=== PATIENT | male | born 1955 | race Caucasian/White ===

== ENCOUNTER → 2018-01-24 | Outpatient (CLI) | payer OTHER ==
[~2018-01-24] MED LIST: ALLO300T PO; ASPI-496 PO; ATOR80TA PO; B/P MED; NEBI5TAB2 PO
== END | disposition home or self-care (01) ==
LOC: CFH 13:02
PROVIDERS: ATTEND Internal Medicine Cardiovascular Disease
DX: I08.3 Combined rheumatic disorders of mitral, aortic and tricuspid valves (principal); I10 Essential (primary) hypertension; E78.5 Hyperlipidemia, unspecified; I77.810 Thoracic aortic ectasia
CPT/HCPCS: 93306

== ENCOUNTER 2020-09-07 10:58 | Observation (INO) | payer MEDICARE ==
[~2020-09-07] VITALS: Ht 167.6 cm; Wt 77.0 kg
[~2020-09-07 10:58] MED LIST changes: -NEBI5TAB2 PO; +NEBI5TAB3 PO
[2020-09-07] MEDS ORDERED: ROSU40TA PO (11:46)
[2020-09-07] MEDS ORDERED: METO50TA82 PO (11:46)
[2020-09-07] MEDS ORDERED: NITR0.4T28 SL (11:46)
[2020-09-07] MEDS ORDERED: VALS40TA2 PO (11:46)
[2020-09-07] MEDS ORDERED: HYDR-3237 PO (11:46)
[2020-09-07] MEDS ORDERED: NITR0.6T4 SL (11:46)
[2020-09-07 12:01] LABS: BASOPHILS % (AUTO) 0 % (0-1); EOSINOPHILS % (AUTO) 6 % (1-7); LYMPHOCYTES % (AUTO) 34 % (22-44); MEAN CORPUSCULAR HEMOGLOBIN 32.6 pg (27.5-34.5); MEAN CORPUSCULAR HGB CONC 33.5 g/dL (33.2-36.2); MEAN PLATELET VOLUME 8.1 fL (7.4-10.4); MONOCYTES % (AUTO) 8 % (2-9); NEUTROPHILS % (AUTO) 52 % (42-75); PLATELET COUNT 244 x10^3/uL (130-400); RED BLOOD COUNT 4.78 x10^6/uL (4.38-5.82)
[2020-09-07 12:09] LABS: MD NO
[2020-09-07 12:10] LABS: ANION GAP 6 mmol/L (5-15); CALCIUM 9.2 mg/dL (8.5-10.1); CHLORIDE 108 mmol/L (98-107); CREATININE 0.92 mg/dL (0.7-1.3)
[2020-09-07] MEDS ORDERED: BIVALIRUDIN 250 MG ONE ×2 (14:58→15:45)
[2020-09-07] MEDS ORDERED: FENTANYL PF 100 MCG/2ML ONE (14:58)
[2020-09-07] MEDS ORDERED: TICAGRELOR 90 MG TABLET ONE (14:58)
[2020-09-07] MEDS ORDERED: VERAPAMIL 2.5 MG/ML, 2ML ONE (14:58)
[2020-09-07] MEDS ORDERED: MIDAZOLAM 1 MG/ML, 5ML ONE (14:58)
[2020-09-07] MEDS ORDERED: LIDOCAINE-MPF 1%, 5ML ONE (14:59)
[2020-09-07] MEDS ORDERED: HEPARIN 1,000 UNITS/ML, 10ML ONE (14:59)
[2020-09-07] MEDS ORDERED: ASPIRIN 325 MG TABLET EC ONE (16:01)
[2020-09-07] MEDS ORDERED: HYDROcodone/APAP 5/325 TABLET PO PRN (16:30)
[2020-09-07] MEDS ORDERED: NITROGLYCERIN SINGLE TAB 0.4 MG SL PRN (16:30)
[2020-09-07] MEDS ORDERED: BIVALIRUDIN 250 MG in SODIUM CHLORIDE 0.9% 50 ML IV SCH (16:30)
[2020-09-07 19:19] VITALS: BP 123/79
[2020-09-07] MEDS: TICAGRELOR 90 MG TABLET PO SCH (20:31)
[2020-09-07] MEDS: METOPROLOL TARTRATE 50 MG TAB PO SCH (20:33)
[2020-09-07] MEDS ORDERED: LOSARTAN 25MG TABLET PO SCH (21:00)
[2020-09-07] MEDS ORDERED: TEMPLATE NON-FORMULARY MED. (Valsartan** (Diovan**) 40 MG) PO SCH (21:00)
[2020-09-08] MEDS ORDERED: ZOLPIDEM 5MG TABLET PO PRN
[2020-09-08 01:31] VITALS: BP 147/85
[2020-09-08 05:32] LABS: CHLORIDE 110 mmol/L (98-107)
[2020-09-08 05:39] LABS: ANION GAP 5 mmol/L (5-15); CREATININE 0.87 mg/dL (0.7-1.3)
[2020-09-08 08:29] VITALS: BP 147/76
[2020-09-08] MEDS ORDERED: ASPIRIN 81 MG TABLET EC PO SCH (09:00)
[2020-09-08] MEDS ORDERED: ALLOPURINOL 300 MG TABLET PO SCH (09:00)
[2020-09-08] MEDS: TICAGRELOR 90 MG TABLET PO SCH (10:02)
[2020-09-08] MEDS: METOPROLOL TARTRATE 50 MG TAB PO SCH (10:03)
[2020-09-08] MEDS ORDERED: TICA90TA PO (11:08)
[2020-09-08] MEDS ORDERED: METO100T5 PO (11:25)
== END 2020-09-08 12:45 | disposition home or self-care (01) ==
LOC: CACL 10:58 → ORIP 16:14 → 5SO 16:46 → DCLOUNGE 09-08 12:31
PROVIDERS: ADMIT Internal Medicine Cardiovascular Disease; ATTEND Internal Medicine Cardiovascular Disease
DX: I25.10 Atherosclerotic heart disease of native coronary artery without angina pectoris (principal); I25.5 Ischemic cardiomyopathy; I10 Essential (primary) hypertension; I77.810 Thoracic aortic ectasia; I51.9 Heart disease, unspecified; I25.2 Old myocardial infarction; Z79.82 Long term (current) use of aspirin; Z79.899 Other long term (current) drug therapy; Z98.61 Coronary angioplasty status
CPT/HCPCS: 36415; 80048; 85025; 93458; 99156; 99157; C1725; C1769; C1874; C1887; C1894; C9600; G0378; J0583; J1644; J2250; J3010; Q9967